=== PATIENT | male | born 1955 | race Caucasian/White ===

== ENCOUNTER → 2021-07-26 10:36 | Outpatient (CLI) | payer MEDICARE, SELFPAY ==
--- NOTE | ~2021-07-26 | XR_ITS ---
EXAMINATION: XR abdomen/kub 1V EXAM DATE: 07/26/2021 10:57 INDICATION: Personal history of urinary calculi . Hx of renal stones in February & April 2021, f/u x- ray; no pain; hx of 2 hernia surgeries ( umbilical and inguinal ). TECHNIQUE: Frontal projection(s) of the abdomen for interpretation. There is no prior study for tawnya zarate. FINDINGS: There are right-sided pelvic calcifications consistent with phleboliths. There is expecte d amount of colonic stool and gas. No small bowel dilation, nonobstructive bowel gas pattern. The re are no suspicious calcifications identified. There is no organomegaly suspected. The bones are unremarkable. There is no free intraperitoneal air. The lung bases are clear. IMPRESSION: Unremarkable abdomen x-ray exam. . Reviewed, dictated and finalized at location A. [employer] MACHINE [employer]PERATOR
== END ==
PROVIDERS: Visit Provider Urology
DX: Z87.442 Personal history of urinary calculi (principal)
CPT/HCPCS: 74018